=== PATIENT | male | born 1960 | race Caucasian/White ===

== ENCOUNTER 2024-01-02 15:35 | Emergency (ER) | payer OTHER ==
[~2024-01-02] VITALS: Ht 162.6 cm; Wt 75.0 kg
[2024-01-02 15:36] VITALS: TEMP 97.5
[2024-01-02] MEDS: ketorolac trometh 15mg/ml vial 15 MG/ML ML IM ONE (16:01)
[2024-01-02] MEDS: HYDROmorphone 1 mg/ml syringe IM ONE (16:49)
[2024-01-02] MEDS ORDERED: OXYC-658 PO (17:42)
[2024-01-02] MEDS ORDERED: METH4TAB81 PO (17:45)
[2024-01-02] MEDS ORDERED: CYCL-1 PO (17:45)
[2024-01-02 18:04] VITALS: BP 134/76; PULSE 82; RESP 16; O2SAT 99
== END 2024-01-02 18:07 | disposition home or self-care (01) ==
LOC: ER 15:35
DX: S39.92XA Unspecified injury of lower back, initial encounter (principal); Z88.1 Allergy status to other antibiotic agents; W19.XXXA Unspecified fall, initial encounter; Y93.89 Activity, other specified; Y92.89 Other specified places as the place of occurrence of the external cause; Y99.8 Other external cause status
CPT/HCPCS: 72100; 72131; 72170; 96372; 99285; J1171; J1885